=== PATIENT | female | born 1990 | race Caucasian/White ===

== ENCOUNTER 2018-10-10 13:10 | Emergency (ER) | payer SELFPAY ==
[~2018-10-10] VITALS: Ht 154.9 cm; Wt 73.9 kg
[~2018-10-10 13:10] MED LIST: FERR240T9 PO; PREN1TAB17 PO
[2018-10-10 13:29] VITALS: Ht 154.9 cm; Wt 73.9 kg
[2018-10-10] MEDS ORDERED: ACETAMINOPHEN 325 MG TAB PO ONE (14:00)
[2018-10-10] MEDS ORDERED: IBUPROFEN 600 MG TAB PO ONE (14:00)
[2018-10-10] MEDS ORDERED: SOD CHLORIDE 0.9% IV STA (14:23)
[2018-10-10] MEDS ORDERED: CEFTRIAXONE 1 GM/50 ML (PMX) 50 ML IVPB STA (14:23)
[2018-10-10] MEDS ORDERED: IBUP-1542 PO (15:48)
[2018-10-10] MEDS ORDERED: ACET500C5 PO (15:48)
[2018-10-10] MEDS ORDERED: CEPH-443 PO (15:48)
--- NOTE | 2018-10-10 15:56 | ERD ---
ER Documentation Chief Complaint Chief Complaint FEVER X2 DAYS, BODYACHES, NO COUGH, NO SOB, NO CONGESTION HPI 28-year-old female presents with fever for last 2 days. She has body aches as well. She has the beginnings of a mild cough. Denies sore throat, vomiting, abdominal pain, diarrhea, urinary complaints. She denies abdominal pain. ROS All systems reviewed and are negative except as per history of present illness. Medications Home Meds Active Scripts Acetaminophen* (Tylophen*) 500 Mg Capsule, 1 CAP PO Q6H PRN for PAIN AND OR ELEVATED TEMP, #15 CAP Prov:JACK QUIROZ MD 10/10/18 Ibuprofen* (Motrin*) 600 Mg Tab, 600 MG PO Q6, #15 TAB Prov:JACK QUIROZ MD 10/10/18 Cephalexin* (Keflex*) 500 Mg Capsule, 500 MG PO BID for 10 Days, CAP Prov:JACK QUIROZ MD 10/10/18 Reported Medications Ferrous Gluconate (Iron) 1 Tab Tablet, 1 TAB PO DAILY 03/04/14 Vit-Iron Fumarate-FA ( Tablet) 1 Each Tablet, 1 TAB PO DAILY, TAB 03/04/14 Allergies Allergies: Coded Allergies: No Known Allergies (Verified Allergy, Unknown, 08/21/15) PMhx/Soc Medical and Surgical Hx: pt denies Medical Hx History of Surgery: Yes (CATARACT) Anesthesia Reaction: No Hx Neurological Disorder: No Hx Respiratory Disorders: No Hx Cardiac Disorders: No Hx Psychiatric Problems: No Hx Miscellaneous Medical Probl: No Hx Alcohol Use: Yes (OCCASSIONAL) Hx Substance Use: No Hx Tobacco Use: No Smoking Status: Never smoker FmHx Family History: No diabetes, No coronary disease, No other Physical Exam Vitals Vital Signs Date Temp Pulse Resp B/P (MAP) Pulse Ox O2 O2 Flow FiO2 Time Delivery Rate 10/10/18 98.4 89 14 111/66 100 Room Air 16:00 (81) 10/10/18 102.1 13:55 10/10/18 102.1 13:54 10/10/18 102.0 102 17 132/87 100 13:29 (102) Physical Exam Const: No acute distress Head: Atraumatic Eyes: Normal Conjunctiva ENT: Normal External Ears, Nose and Mouth. Neck: Full range of motion. No meningismus. Resp: Clear to auscultation bilaterally Cardio: Regular rate and rhythm, no murmurs Abd: Soft, non tender, non distended. Normal bowel sounds Skin: No petechiae or rashes Back: No midline or flank tenderness Ext: No cyanosis, or edema Neur: Awake and alert Psych: Normal Mood and Affect Result Diagram: 10/10/18 1442 10/10/18 1442 Results 24 hrs Laboratory Tests Test 10/10/18 13:56 10/10/18 14:04 10/10/18 14:42 10/10/18 14:48 Urine Color YELLOW Urine Clarity CLOUDY Urine pH 7.0 Urine Specific 1.014 [place] Urine Ketones NEGATIVE mg/dL Urine Nitrite POSITIVE mg/dL Urine Bilirubin NEGATIVE mg/dL Urine 1+ mg/dL Urobilinogen Urine Leukocyte 3+ Kellen/ul Esterase Urine Microscopic 14 /HPF RBC Urine Microscopic > 182 /HPF WBC Urine Squamous FEW /HPF Epithelial Cells Urine Bacteria FEW /HPF Urine Mucus FEW /HPF Urine Hemoglobin 3+ mg/dL Urine Glucose NEGATIVE mg/dL Urine Total 2+ mg/dl Protein POC Beta HCG, NEGATIVE Qualitative White Blood Count 6.8 10^3/ul Red Blood Count 4.92 10^6/ul Hemoglobin 10.8 g/dl Hematocrit 35.5 % Mean Corpuscular 72.2 fl Volume Mean Corpuscular 22.0 pg Hemoglobin Mean Corpuscular 30.4 g/dl Hemoglobin Concen t Red Cell 17.5 % Distribution Width Platelet Count 305 10^3/UL Mean Platelet 9.5 fl Volume Immature 0.300 % Granulocytes % Neutrophils % 68.9 % Lymphocytes % 19.5 % Monocytes % 10.6 % Eosinophils % 0.0 % Basophils % 0.7 % Nucleated Red 0.0 /100WBC Blood Cells % Immature 0.020 10^3/ul Granulocytes # Neutrophils # 4.7 10^3/ul Lymphocytes # 1.3 10^3/ul Monocytes # 0.7 10^3/ul Eosinophils # 0.0 10^3/ul Basophils # 0.1 10^3/ul Nucleated Red 0.0 10^3/ul Blood Cells # Sodium Level 135 mmol/L Potassium Level 3.6 mmol/L Chloride Level 99 mmol/L Carbon Dioxide 27 mmol/L Level Anion Gap 9 Blood Urea 5 mg/dl Nitrogen Creatinine 0.67 mg/dl Est Glomerular > 60 mL/min Filtrat Rate mL/min Glucose Level 122 mg/dl Calcium Level 8.8 mg/dl Total Bilirubin 0.4 mg/dl Direct Bilirubin 0.00 mg/dl Indirect 0.4 mg/dl Bilirubin Aspartate Amino 26 IU/L Transf (AST/SGOT) Alanine 22 IU/L Aminotransferase (ALT/SGPT) Alkaline 56 IU/L Phosphatase Total Protein 7.6 g/dl Albumin 3.8 g/dl Globulin 3.80 g/dl Albumin/Globulin 1.00 Ratio POC Venous 1.5 mmol/L Lactate Current Medications Medications Dose Sig/Oli Start Time Status Last (Trade) Ordered Route PRN Stop Time Admin Dose Reason Admin Ibuprofen 600 mg ONCE ONCE 10/10/18 DC 10/10/18 (Motrin) PO 14:00 13:55 10/10/18 14:01 650 mg ONCE ONCE 10/10/18 DC 10/10/18 Acetaminophen PO 14:00 13:54 (Tylenol 10/10/18 14:01 Tab) Sodium 2,500 ml @ Q0M STAT 10/10/18 DC 10/10/18 Chloride 0 mls/hr IV 14:23 14:46 10/10/18 14:29 Ceftriaxone 50 ml @ ONCE STAT 10/10/18 DC 10/10/18 Sodium 100 mls/hr IVPB 14:23 14:47 10/10/18 14:52 Procedures/MDM Urine shows significant signs of infection with white blood cells, leukocyte est erase and nitrates. Urine sent for culture. Patient presents with SIRS criteria. She does have URI symptoms to be given the findings on UTI 30 cc/kg IV normal saline was ordered in addition to blood cultures, urine culture and lactate was normal. Patient was given Rocephin 1 g IV. CBC shows no leukocytosis. She has mild anemia. CMP shows no significant acute abnormalities. Patient not ill-appearing throughout the ER course with improvement in temperature and tachycardia. Patient may have viral URI of viral syndrome given her body aches and cough although given the findings on urine wi ll treat with Keflex, continued fever control, primary care follow-up and return precautions. She has no signs of abdominal pain to suggest tubo-ovarian abscess, surgical abdomen. Doubt septic stone. She has no flank pain. She has no signs of severe sepsis and is well-appearing. The patient was stable with no new complaints during the ER course. Clinically, there is no current evidence to suggest meningitis, sepsis, acute abdomen, pneumonia, stroke, acute coronary syndrome, pulmonary embolism, aortic dissection or any other emergent condition appearing to require further evaluation or hospitalization. Patient counseled regarding my diagnostic impression and care plan. Prior to discharge all questions answered. Pt agrees with treatment plan and understands strict return precautions. Pt is instructed to follow up with primary care provider within 24- 48 hours. Precautionary instructions provided including instructions to return to the ER if not improving or for any worsening or changing symptoms or concerns. Disclaimer: Inadvertent spelling and grammatical errors are likely due to EHR/dictation software use and do not reflect on the overall quality of patient care. Also, please note that the electronic time recorded on this note does not necessarily reflect the actual time of the patient encounter. Departure Diagnosis: Primary Impression: Fever Fever type: unspecified Qualified Codes: R50.9 - Fever, unspecified Condition: Stable Patient Instructions: Urinary Tract Infections in Women, Fever Control (Adult) Referrals: DOCTOR,NOT ON STAFF (PCP) Additional Instructions: Drink plenty of fluids at home. Recheck for new worsening symptoms or with primary care doctor. JACK QUIROZ MD Oct 10, 2018 15:56
[2018-10-10 16:00] VITALS: RESP 14
[2018-10-10 16:28] VITALS: BP 118/79; PULSE 90
== END 2018-10-10 16:30 | disposition home or self-care (01) ==
LOC: FTE 13:10
DX: R50.9 Fever, unspecified (principal)
CPT/HCPCS: 36415; 80053; 81001; 81025; 83605; 85025; 87040; 87086; 96365; 96366; 99284; J0696; J7030